=== PATIENT | female | born 1965 | race Two or more races ===

== ENCOUNTER → 2021-03-19 | Outpatient (CLI) | payer BC ==
[~2021-03-19] MED LIST: FLEXERIL PO; IBUP-2029 PO
== END | disposition home or self-care (01) ==
LOC: LAB 13:16
PROVIDERS: ATTEND Surgery
DX: Z01.812 Encounter for preprocedural laboratory examination (principal); Z20.822 Contact with and (suspected) exposure to COVID-19
CPT/HCPCS: 87426

== ENCOUNTER → 2021-03-21 | Day surgery (SDC) | payer BC ==
[~2021-03-21] VITALS: Ht 160 cm; Wt 81.6 kg
[~2021-03-21] MED LIST changes: +BUPIVACAINE HCL/PF 0.5% (5MG/ML) 10ML ONE; +FENTANYL CITRATE/PF 50MCG/ML 2ML VIAL ONE; +HYDROCODONE/ACETAMINOPHEN 5/325MG TABLET PO NR; +LACTATED RINGERS 1,000 ML IV SCH; +LIDOCAINE HCL 1% 20ML VIAL (Pyxis) INJ ONE; +LIDOCAINE HCL/EPINEPHRINE 1%-EPI 1:100,000 20 ML VIAL ONE; +MIDAZOLAM HCL 2 MG/2 ML VIAL ONE; +PROPOFOL 200MG/20ML VIAL IV ONE; +SKIN ADHESIVE 0.7 GM EA TOP ONE
[2021-03-21 11:45] VITALS: BP 132/97
== END | disposition home or self-care (01) ==
LOC: OR 06:59
PROVIDERS: ATTEND Surgery
DX: K64.8 Other hemorrhoids (principal); K64.4 Residual hemorrhoidal skin tags; K21.9 Gastro-esophageal reflux disease without esophagitis; G47.30 Sleep apnea, unspecified; Z79.899 Other long term (current) drug therapy; Z98.890 Other specified postprocedural states; Z88.8 Allergy status to other drugs, medicaments and biological substances
CPT/HCPCS: 46260; 88304; J2250; J2704; J3010; J3490